=== PATIENT | male | born 1955 | race Caucasian/White ===

== ENCOUNTER → 2018-10-20 | Outpatient (CLI) | payer OTHER ==
--- NOTE | 2018-10-20 14:28 | RAD ---
EXAM DESCRIPTION: XR CHEST 2 VIEWS CLINICAL HISTORY: HYPOXEMIA COMPARISON: None TECHNIQUE: PA/lateral FINDINGS: Normal heart size. Tortuous aorta. Opacity left lower lobe, early infiltrate and/or subsegmental atelectasis. Left pleural effusion blunting the posterior costophrenic angle. No right lung infiltrate or effusion IMPRESSION: Retrocardiac atelectasis/developing infiltrate with small effusion Electronically signed by: Palomo lAlred MD 10/20/2018 2:26 PM CDT
--- NOTE | 2018-10-20 14:50 | US ---
EXAM DESCRIPTION: Venous,Lower Extremity LT: ULTRASOUND. CLINICAL HISTORY: SWELLING R/O DVT COMPARISON: None Available. TECHNIQUE: Gamino-scale and doppler sonographic evaluation of the deep venous system of the left lower extremity. FINDINGS: Doppler evaluation shows normal color flow and normal phasicity and augmentation of the left common femoral vein, femoral vein, popliteal vein, greater saphenous vein, peroneal, and posterior tibial vein. The left lower extremity deep veins were completely compressible; normal occlusion with transducer pressure. Gamino-scale survey showed no echogenic thrombus within these veins. IMPRESSION: 1. Duplex ultrasound evaluation of the left lower extremity deep venous system showing no evidence of thrombosis. Electronically signed by: Kevon Woody MD 10/20/2018 2:49 PM CDT
--- NOTE | 2018-10-20 14:52 | US ---
EXAM DESCRIPTION: Venous,Upper Extremity LT: ULTRASOUND. CLINICAL HISTORY: SWELLING R/O DVT COMPARISON: None Available. TECHNIQUE: Two -dimensional and doppler sonographic evaluation of the deep venous system of the left upper extremity. FINDINGS: Doppler evaluation shows normal color flow and normal phasicity and augmentation of the left subclavian, jugular, axillary, basilic, cephalic, brachial, radial vein and ulnar vein. The left upper extremity deep veins showed normal occlusion with transducer pressure. Two-dimensional survey showed no echogenic thrombus within these veins. IMPRESSION: Duplex ultrasound evaluation of the left upper extremity deep venous system showing no thrombosis . Electronically signed by: Kevon Woody MD 10/20/2018 2:50 PM CDT
== END ==
LOC: US 13:02
PROVIDERS: ATTEND Nurse Practitioner
DX: R09.02 Hypoxemia (principal); J98.11 Atelectasis; M70.88 Other soft tissue disorders related to use, overuse and pressure other site